=== PATIENT | male | born 1980 | race Two or more races ===

== ENCOUNTER → 2025-05-09 | Outpatient (CLI) | payer MEDICAID, SELFPAY ==
--- NOTE | 2025-05-09 15:29 | XR_ITS ---
Examination: Right knee 2 views TECHNIQUE: AP lateral right knee 2 views Date and time: May 09, 2025, 1537 hours INDICATIONS: Status post operative reduction internal fixation tibial fracture FINDINGS: Healed fracture proximal tibia, satisfactory alignment Orthopedic hardware in satisfactory position Moderate tricompartment osteoarthritis IMPRESSION: Healed fracture proximal tibia with satisfactory alignment
== END | disposition home or self-care (01) ==
PROVIDERS: PCP Physician Assistant; Referring Provider Orthopaedic Surgery; Visit Provider Orthopaedic Surgery
DX: M25.569 Pain in unspecified knee (principal); Z87.81 Personal history of (healed) traumatic fracture
CPT/HCPCS: 73560